=== PATIENT | male | born 1985 | race Caucasian/White ===

== ENCOUNTER 2022-01-01 14:15 | Emergency (ER) | payer BC | END 2022-01-01 15:44 | disposition home or self-care (01) | LOC: MW.ED 14:15 | DX: S93.401A Sprain of unspecified ligament of right ankle, initial encounter (principal); W17.89XA Other fall from one level to another, initial encounter; Z88.8 Allergy status to other drugs, medicaments and biological substances | CPT/HCPCS: 73610-26-RT; 73610-RT; 99283-25 ==